=== PATIENT | male | born 1940 | race Caucasian/White ===

== ENCOUNTER 2016-09-18 15:00 | Inpatient (IN) | payer OTHER ==
[~2016-09-18] VITALS: Ht 154.9 cm; Wt 63.9 kg
[~2016-09-18 15:00] MED LIST: ACTIGALL300 MG PO; ADVAIR HFA120 INHALA IH; APIDRA100 UNIT/1 SQ; ASPIRIN325 MG PO; BUTRANS1 EAC1 TP; CHERATUSSIN AC473 ML PO; CHERATUSSIN DA473 ML PO; CLEOCIN300 MG PO; CYCLOBENZAPRINE10 MG PO; DOXEPIN HCL25 MG PO; ENALAPRIL MALEA10 M1 PO; ENALAPRIL MALEA10 MG PO; FLEXERIL10 MG PO; GLUCOPHAGE1000 MG PO; HUMALOG100 UNIT/1 SC; HYDROCODON-ACE1 EAC7 PO; IMODIUM2 MG PO; KEFLEX500 MG PO; LANTUS 10100 UNITS/ SC; LEVAQUIN250 MG PO; LEVAQUIN500 MG PO; LEVAQUIN750 MG PO; LEVEMIR FL100 UNIT/1 SC; LEVEMIR FL100 UNITS/ SC; LEVEMIR100 UNIT/1 SQ; LEVOTHYROXINE50 MCG PO; LIALDA1.2 GM PO; LIDOCAINE700 MG TP; LIDODERM 5% P1 PATCH TD; LIPITOR80 MG PO; LO-DOSE ASPIRIN81 M1 PO; LOPRESSOR25 MG PO; LOSARTAN POTASS50 MG PO; LOVAZA1 GM PO; MEDROL DOSEPAK4 MG PO; METAMUCIL CAPSU1 CAP PO; METAMUCIL0.52 GM PO; NIASPAN1000 MG PO; NORCO 5/3251 TABLET PO; NOVOLOG 10100 UNITS/ SC; NOVOLOG100 UNIT/3 SC; PERCOCET 5/31 TABLET PO; PREDNISONE10 M1 PO; PREDNISONE10 MG PO; PREDNISONE20 MG PO; PRILOSEC OTC20 MG PO; PRILOSEC20 MG PO; ROWASA60 ML PR; SIMVASTATIN80 MG PO; SINEQUAN25 MG PO; SULFADIAZINE500 MG PO; SULFASALAZINE500 MG PO; TAMIFLU30 MG PO; TRAMADOL HCL50 MG PO; URSODIOL300 MG PO; VENTOLIN HFA18 GM IH; VITAMIN B-121000 MCG PO; VITAMIN B-6100 MG PO; VITAMIN D2000 UNIT PO; VITAMIN D31000 UNIT PO; VITAMIN D400 UNI2 PO; ZOCOR80 M1 PO
[2016-09-18 15:45] LABS: HEMATOCRIT 43.1 % (38.0-50.0); MCH 30.9 PG (29.0-34.0); MCHC 33.9 G/DL (30.0-36.0); MCV 91.1 FL (86-99); MEAN PLAT.VOLUME 8.8 uM^3 (9.0-12.4); PLATELET COUNT 132 K/uL (156-360); RBC DIS.WIDTH-CV 14.6 % (11.8-14.6); RBC DIS.WIDTH-SD 48.5 % (39-53); RED BLOOD COUNT 4.73 M/uL (4.00-5.50); WHITE BLOOD COUNT 18.7 K/uL (4.1-10.2)
[2016-09-18 15:56] LABS: CHLORIDE 101 mEq/L (99-109); POTASSIUM 3.9 mEq/L (3.7-5.4); SODIUM 133 mEq/L (136-147)
[2016-09-18 15:57] LABS: GLUCOSE 162 mg/dL (70-99)
[2016-09-18 15:59] LABS: ANION GAP 11 MEQ/L (2-14)
[2016-09-18 16:01] LABS: GFR ESTIMATE (CALCULATED) 29 mL/min/
[2016-09-18 16:02] LABS: UREA NITROGEN (BUN) 25 mg/dL (9-23)
[2016-09-18 16:09] LABS: TROP-I INTERPRETATION NEGATIVE; TROPONIN-I < 0.01 ng/mL (0.0-0.30)
[2016-09-18 20:32] LABS: TROP-I INTERPRETATION NEGATIVE; TROPONIN-I < 0.01 ng/mL (0.0-0.30)
[2016-09-18 22:11] LABS: D-DIMER ELISA 0.53 mg/L FEU (< 0.57)
[2016-09-19] MEDS ORDERED: PROTONIX40 MG PO (00:08)
[2016-09-19] MEDS ORDERED: IRON325 M1 PO (00:09)
[2016-09-19] MEDS ORDERED: GENTEAL TEARS 015 M1 BOTH EYES (00:09)
[2016-09-19 01:08] LABS: CARBON DIOXIDE (BICARBONATE) 25.7 MEQ/L (20-31)
[2016-09-19 01:26] LABS: BASOPHIL COUNT 0.1 K/uL (0-0.1); EOSINOPHIL (%) 1.4 % (0-5); EOSINOPHIL COUNT 0.3 K/uL (0-0.3); IMMATURE GRANULOCYTE (%) 0.5 % (0.0-0.7); IMMATURE GRANULOCYTE COUNT 0.1 K/uL; INSTRUMENT ABS NEUTROPHIL CT 14.4 K/uL; LYMPHOCYTE COUNT 1.6 K/uL (1.0-2.8); MONOCYTE COUNT 1.8 K/uL (0-0.8); NEUTROPHIL (%) 78.8 % (45-76); NEUTROPHIL COUNT 14.4 K/uL (1.8-6.4)
[2016-09-19 03:01] LABS: POINT-OF-CARE METER ID UU13113702
[2016-09-19 03:09] VITALS: BP 114/58
[2016-09-19 06:25] LABS: C DIFF TOXIN POSITIVE (NEGATIVE)
[2016-09-19 06:26] LABS: PROBE CHECK PASS
[2016-09-19 07:50] VITALS: BP 128/80
[2016-09-19 09:28] LABS: POINT-OF-CARE METER ID UU13113781
[2016-09-19 11:23] LABS: POINT-OF-CARE METER ID UU13113781
[2016-09-19 11:24] LABS: BASOPHIL COUNT 0.1 K/uL (0-0.1); EOSINOPHIL (%) 1.2 % (0-5); EOSINOPHIL COUNT 0.2 K/uL (0-0.3); HEMATOCRIT 40.4 % (38.0-50.0); IMMATURE GRANULOCYTE COUNT 0.2 K/uL; INSTRUMENT ABS NEUTROPHIL CT 12.1 K/uL; LYMPHOCYTE COUNT 1.4 K/uL (1.0-2.8); MCH 31.6 PG (29.0-34.0); MCHC 34.2 G/DL (30.0-36.0); MCV 92.4 FL (86-99); MEAN PLAT.VOLUME 9.3 uM^3 (9.0-12.4); MONOCYTE (%) 10.4 % (3-12); MONOCYTE COUNT 1.6 K/uL (0-0.8); NEUTROPHIL COUNT 12.1 K/uL (1.8-6.4); PLATELET COUNT 119 K/uL (156-360); RBC DIS.WIDTH-CV 14.6 % (11.8-14.6); RBC DIS.WIDTH-SD 49.7 % (39-53); RED BLOOD COUNT 4.37 M/uL (4.00-5.50); WHITE BLOOD COUNT 15.5 K/uL (4.1-10.2)
[2016-09-19 11:56] LABS: ANION GAP 13 MEQ/L (2-14); CHLORIDE 100 MEQ/L (99-109); GFR ESTIMATE (CALCULATED) 31 mL/min/; GLUCOSE 148 mg/dL (70-99); POTASSIUM 4.4 MEQ/L (3.7-5.4); SAMPLE HEMOLYSIS CHECK 0; SAMPLE ICTERIC CHECK 0; SAMPLE LIPEMIA CHECK 0; SODIUM 132 MEQ/L (136-147); UREA NITROGEN (BUN) 33 mg/dL (9-23)
[2016-09-19 12:00] VITALS: BP 120/58
[2016-09-19 14:32] LABS: ADD MIUA? YES; BILIRUBIN NEGATIVE; BLOOD MODERATE; COLOR YELLOW ((YELLOW)); GLUCOSE (STRIP) NEGATIVE; KETONES NEGATIVE; LEUKOCYTES NEGATIVE; NITRITE NEGATIVE; PROTEIN (STRIP) 30; SPECIFIC GRAVITY 1.006 (1.000-1.030); UROBILINOGEN 0.2 MG/DL (0.2-1.0)
[2016-09-19 14:37] LABS: BACTERIA RARE /HPF; EPITHELIAL CELLS RARE /HPF; MUCUS TRACE /LPF; RED BLOOD CELLS 0-5 /HPF (0-5); UCUL ADDED? NO; WHITE BLOOD CELLS 0-5 /HPF (0-5)
[2016-09-19 15:54] LABS: POINT-OF-CARE METER ID UU13113781
[2016-09-19 16:00] VITALS: BP 122/60
[2016-09-19 19:27] VITALS: BP 133/61
[2016-09-19 23:03] VITALS: BP 115/72
[2016-09-20 00:13] LABS: POINT-OF-CARE METER ID UU13113781
[2016-09-20 03:34] VITALS: BP 117/57
[2016-09-20 06:18] LABS: ANION GAP 10 MEQ/L (2-14); CHLORIDE 105 MEQ/L (99-109); GFR ESTIMATE (CALCULATED) 31 mL/min/; GLUCOSE 181 mg/dL (70-99); POTASSIUM 3.8 MEQ/L (3.7-5.4); SAMPLE HEMOLYSIS CHECK 0; SAMPLE ICTERIC CHECK 0; SAMPLE LIPEMIA CHECK 0; SODIUM 135 MEQ/L (136-147); UREA NITROGEN (BUN) 35 mg/dL (9-23)
[2016-09-20 07:23] LABS: EOSINOPHIL (%) 4.1 % (0-5); EOSINOPHIL COUNT 0.4 K/uL (0-0.3); IMMATURE GRANULOCYTE (%) 0.5 % (0.0-0.7); IMMATURE GRANULOCYTE COUNT 0.1 K/uL; LYMPHOCYTE COUNT 1.3 K/uL (1.0-2.8); MCH 31.5 PG (29.0-34.0); MCHC 33.9 G/DL (30.0-36.0); MCV 92.7 FL (86-99); MEAN PLAT.VOLUME 9.4 uM^3 (9.0-12.4); MONOCYTE (%) 10.1 % (3-12); NEUTROPHIL (%) 71.8 % (45-76); PLATELET COUNT 118 K/uL (156-360); RBC DIS.WIDTH-CV 14.6 % (11.8-14.6); RBC DIS.WIDTH-SD 49.6 % (39-53); WHITE BLOOD COUNT 9.7 K/uL (4.1-10.2)
[2016-09-20 07:46] LABS: POINT-OF-CARE USER ID NUTSLF44
[2016-09-20 08:45] VITALS: BP 100/56
[2016-09-20 09:05] LABS: MAGNESIUM 1.3 mg/dl (1.3-2.7)
[2016-09-20 12:28] VITALS: BP 102/52
[2016-09-20 13:05] LABS: POINT-OF-CARE METER ID UU13113781; POINT-OF-CARE USER ID NUTSLF44
[2016-09-20 16:35] VITALS: BP 104/52
[2016-09-20 17:09] LABS: POINT-OF-CARE METER ID UU13113698
[2016-09-20 20:40] VITALS: BP 129/62
[2016-09-21] VITALS: BP 118/58
[2016-09-21 04:00] VITALS: BP 150/71
[2016-09-21 07:04] LABS: BASOPHIL COUNT 0.1 K/uL (0-0.1); EOSINOPHIL (%) 7.3 % (0-5); EOSINOPHIL COUNT 0.7 K/uL (0-0.3); HEMATOCRIT 42.9 % (38.0-50.0); IMMATURE GRANULOCYTE (%) 1.1 % (0.0-0.7); IMMATURE GRANULOCYTE COUNT 0.1 K/uL; INSTRUMENT ABS NEUTROPHIL CT 6.3 K/uL; LYMPHOCYTE COUNT 1.3 K/uL (1.0-2.8); MCH 31.5 PG (29.0-34.0); MCHC 33.8 G/DL (30.0-36.0); MCV 93.1 FL (86-99); MEAN PLAT.VOLUME 9.6 uM^3 (9.0-12.4); MONOCYTE (%) 10.6 % (3-12); NEUTROPHIL (%) 66.3 % (45-76); NEUTROPHIL COUNT 6.3 K/uL (1.8-6.4); PLATELET COUNT 140 K/uL (156-360); RBC DIS.WIDTH-CV 14.5 % (11.8-14.6); RBC DIS.WIDTH-SD 49.6 % (39-53); RED BLOOD COUNT 4.61 M/uL (4.00-5.50); WHITE BLOOD COUNT 9.5 K/uL (4.1-10.2)
[2016-09-21 07:32] LABS: ALKALINE PHOSPHATASE 92 IU/L (3-129); ANION GAP 8 MEQ/L (2-14); CHLORIDE 108 MEQ/L (99-109); GFR ESTIMATE (CALCULATED) 33 mL/min/; POTASSIUM 3.9 MEQ/L (3.7-5.4); SAMPLE HEMOLYSIS CHECK 0; SAMPLE ICTERIC CHECK 0; SAMPLE LIPEMIA CHECK 0; SODIUM 138 MEQ/L (136-147); TOTAL BILIRUBIN 0.7 MG/DL (0.0-1.0); UREA NITROGEN (BUN) 30 mg/dL (9-23)
[2016-09-21 07:33] LABS: GLUCOSE 106 mg/dL (70-99)
[2016-09-21 08:33] LABS: POINT-OF-CARE METER ID UU13113698; POINT-OF-CARE USER ID NUTSLF44
[2016-09-21 09:00] VITALS: BP 117/78
[2016-09-21 09:39] LABS: Estimated Average Glucose 166 mg/dL (70-123); HEMOGLOBIN A1c (GLYCOHEMOGLOB) 7.4 % HGB (Below 5.7)
[2016-09-21 11:52] LABS: POINT-OF-CARE METER ID UU13113698; POINT-OF-CARE USER ID NUTSLF44
[2016-09-21 17:22] LABS: POINT-OF-CARE METER ID UU13113781
[2016-09-21 18:05] VITALS: BP 136/66
[2016-09-21 18:12] LABS: POINT-OF-CARE METER ID UU13113781; POINT-OF-CARE USER ID NUTSLF44
[2016-09-21 20:45] LABS: POINT-OF-CARE METER ID UU13113698
[2016-09-21 21:00] VITALS: BP 138/62
[2016-09-22] VITALS: BP 116/80
[2016-09-22 04:00] VITALS: BP 162/88
[2016-09-22 06:24] LABS: BASOPHIL COUNT 0.1 K/uL (0-0.1); EOSINOPHIL (%) 7.2 % (0-5); EOSINOPHIL COUNT 0.7 K/uL (0-0.3); IMMATURE GRANULOCYTE (%) 1.3 % (0.0-0.7); IMMATURE GRANULOCYTE COUNT 0.1 K/uL; INSTRUMENT ABS NEUTROPHIL CT 5.6 K/uL; LYMPHOCYTE COUNT 1.6 K/uL (1.0-2.8); MCH 31.1 PG (29.0-34.0); MCV 91.5 FL (86-99); MEAN PLAT.VOLUME 9.3 uM^3 (9.0-12.4); MONOCYTE (%) 10.7 % (3-12); NEUTROPHIL (%) 62.4 % (45-76); NEUTROPHIL COUNT 5.6 K/uL (1.8-6.4); PLATELET COUNT 147 K/uL (156-360); RBC DIS.WIDTH-CV 14.1 % (11.8-14.6); RBC DIS.WIDTH-SD 47.5 % (39-53); RED BLOOD COUNT 4.37 M/uL (4.00-5.50)
[2016-09-22 06:52] LABS: ALKALINE PHOSPHATASE 110 IU/L (3-129); ANION GAP 10 MEQ/L (2-14); CHLORIDE 108 MEQ/L (99-109); GFR ESTIMATE (CALCULATED) 45 mL/min/; GLUCOSE 95 mg/dL (70-99); POTASSIUM 3.7 MEQ/L (3.7-5.4); SAMPLE HEMOLYSIS CHECK 0; SAMPLE ICTERIC CHECK 0; SAMPLE LIPEMIA CHECK 0; SODIUM 138 MEQ/L (136-147); TOTAL BILIRUBIN 0.6 MG/DL (0.0-1.0); UREA NITROGEN (BUN) 26 mg/dL (9-23)
[2016-09-22 09:00] VITALS: BP 127/61
[2016-09-22] MEDS ORDERED: VANCOCIN HCL125 MG PO (09:34)
[2016-09-22] MEDS ORDERED: AMOX TR-K CLV1 EAC3 PO (09:34)
[2016-09-22 11:41] LABS: POINT-OF-CARE METER ID UU14174216; POINT-OF-CARE USER ID ENVKC36
== END 2016-09-22 13:47 | disposition home health service (06) | DRG 190 ==
LOC: EME 15:00 → EDOF 09-19 00:17 → 4EAST 09-19 00:17
PROVIDERS: Hospitalist; Internal Medicine; Internal Medicine Nephrology; Physician Assistant; Physician Assistant Medical
DX: J44.1 Chronic obstructive pulmonary disease with (acute) exacerbation (principal); J96.21 Acute and chronic respiratory failure with hypoxia; J67.9 Hypersensitivity pneumonitis due to unspecified organic dust; A04.7 Enterocolitis due to Clostridium difficile; N17.9 Acute kidney failure, unspecified; N18.3 Chronic kidney disease, stage 3 (moderate); E86.0 Dehydration; G47.33 Obstructive sleep apnea (adult) (pediatric); I12.9 Hypertensive chronic kidney disease with stage 1 through stage 4 chronic kidney disease, or unspecified chronic kidney disease; E87.1 Hypo-osmolality and hyponatremia; E11.22 Type 2 diabetes mellitus with diabetic chronic kidney disease; I44.0 Atrioventricular block, first degree; E78.5 Hyperlipidemia, unspecified; D69.6 Thrombocytopenia, unspecified; K21.9 Gastro-esophageal reflux disease without esophagitis; Z79.4 Long term (current) use of insulin; Z99.81 Dependence on supplemental oxygen; Z87.891 Personal history of nicotine dependence; Z87.442 Personal history of urinary calculi; Z98.1 Arthrodesis status; Z86.12 Personal history of poliomyelitis; Z82.3 Family history of stroke; Z83.3 Family history of diabetes mellitus
CPT/HCPCS: 71020; 71250; 76770; 80048; 80053; 81003; 82436; 82550; 82575; 82803; 82948; 83036; 83605; 83735; 83880; 83935; 84133; 84300; 84484; 85025; 85027; 85379; 87040; 87070; 87205; 87493; 93005; 93971; 94640; 94640 76; 94760; 94799; 99202; 99281; 99285; J0692; J1644; J1815; J7030; J7050

== ENCOUNTER 2017-03-09 19:25 | Observation (INO) | payer OTHER ==
[~2017-03-09] VITALS: Ht 154.9 cm; Wt 63.0 kg
[~2017-03-09 19:25] MED LIST changes: +AMOX TR-K CLV1 EAC3 PO; +GENTEAL TEARS 015 M1 BOTH EYES; +IRON325 M1 PO; +PROTONIX40 MG PO; +VANCOCIN HCL125 MG PO
[2017-03-09 20:09] LABS: MCV 91.3 FL (86-99); MEAN PLAT.VOLUME 8.8 uM^3 (9.0-12.4); PLATELET COUNT 150 K/uL (156-360); RBC DIS.WIDTH-CV 14.5 % (11.8-14.6); RBC DIS.WIDTH-SD 48.1 % (39-53); RED BLOOD COUNT 5.26 M/uL (4.00-5.50); WHITE BLOOD COUNT 9.3 K/uL (4.1-10.2)
[2017-03-09 20:12] LABS: BASE EXCESS -3.9 mEq/L (-3 to +3); BICARBONATE 20.9 mEq/L (22-26); CARBOXY HGB 2.3 % (0-5); METHEMOGLOBIN 1.2 % (0-1.5); pH 7.36 (7.35-7.45)
[2017-03-09 20:14] LABS: COMMENTS - BLOOD GASES C+; DEVICE NC; O2 FLOW 6 L/MIN; PCO2 37 mm Hg (35-45); PO2 127 mm Hg (80-100); SITE RR; TOTAL RESP RATE 18 resp/min
[2017-03-09 20:18] LABS: CHLORIDE 102 mEq/L (99-109); MAGNESIUM 1.3 mg/dL (1.3-2.7); POTASSIUM 4.1 mEq/L (3.7-5.4); SODIUM 137 mEq/L (136-147)
[2017-03-09 20:20] LABS: GLUCOSE 264 mg/dL (70-99)
[2017-03-09 20:21] LABS: ANION GAP 13 MEQ/L (2-14)
[2017-03-09 20:23] LABS: GFR ESTIMATE (CALCULATED) 31 mL/min/
[2017-03-09 20:24] LABS: UREA NITROGEN (BUN) 21 mg/dL (9-23)
[2017-03-09 20:31] LABS: TROP-I INTERPRETATION NEGATIVE; TROPONIN-I 0.01 ng/mL (0.0-0.30)
[2017-03-09 21:32] LABS: ADD MIUA? YES; BILIRUBIN NEGATIVE; BLOOD MODERATE; COLOR YELLOW ((YELLOW)); GLUCOSE (STRIP) 50; KETONES NEGATIVE; LEUKOCYTES NEGATIVE; NITRITE NEGATIVE; PROTEIN (STRIP) 100; SPECIFIC GRAVITY 1.013 (1.000-1.030); UROBILINOGEN 0.2 MG/DL (0.2-1.0)
[2017-03-09 21:36] LABS: BACTERIA NONE SEEN /HPF; EPITHELIAL CELLS RARE /HPF; GRANULAR CASTS 0-5 /LPF; MUCUS NONE SEEN /LPF; RED BLOOD CELLS 0-5 /HPF (0-5); WHITE BLOOD CELLS 0-5 /HPF (0-5)
[2017-03-09] MEDS ORDERED: MUCINEX600 MG PO (22:05)
[2017-03-09] MEDS ORDERED: ROSUVASTATIN CA40 MG PO (22:06)
[2017-03-09] MEDS ORDERED: REQUIP0.25 MG PO (22:06)
[2017-03-09] MEDS ORDERED: ROBITUSSIN AC,T10 ML PO (22:07)
[2017-03-10 01:15] VITALS: BP 121/66
[2017-03-10 04:02] VITALS: BP 150/70
[2017-03-10 08:57] LABS: POINT-OF-CARE METER ID UU14162513
[2017-03-10 09:46] VITALS: BP 139/68
[2017-03-10 11:30] VITALS: BP 131/66
[2017-03-10 12:38] LABS: POINT-OF-CARE METER ID UU14162513
[2017-03-10 15:36] VITALS: BP 124/77
[2017-03-10] MEDS ORDERED: LOPRESSOR25 MG PO (17:05)
[2017-03-10] MEDS ORDERED: HYDROCODON-ACE1 EAC7 PO (17:06)
[2017-03-10] MEDS ORDERED: PRILOSEC10 MG PO (17:10)
[2017-03-10] MEDS ORDERED: CORICIDIN HBP1 EACH PO (17:11)
[2017-03-10 17:30] LABS: POINT-OF-CARE METER ID UU14162513
[2017-03-10 21:08] LABS: POINT-OF-CARE METER ID UU14162513
[2017-03-10 21:38] VITALS: BP 130/62
[2017-03-11] VITALS (7 sets, daily range): BP systolic 122–141; BP diastolic 60–71
[2017-03-11 06:01] LABS: HEMATOCRIT 48.2 % (38.0-50.0); MCH 30.4 PG (29.0-34.0); MCV 89.4 FL (86-99); MEAN PLAT.VOLUME 9.2 uM^3 (9.0-12.4); PLATELET COUNT 171 K/uL (156-360); RBC DIS.WIDTH-CV 13.6 % (11.8-14.6); RBC DIS.WIDTH-SD 44.5 % (39-53); RED BLOOD COUNT 5.39 M/uL (4.00-5.50); WHITE BLOOD COUNT 11.8 K/uL (4.1-10.2)
[2017-03-11 07:40] LABS: CHLORIDE 99 MEQ/L (99-109); GLUCOSE 234 mg/dL (70-99); POTASSIUM 4.9 MEQ/L (3.7-5.4); SAMPLE HEMOLYSIS CHECK 0; SAMPLE ICTERIC CHECK 0; SAMPLE LIPEMIA CHECK 0; SODIUM 134 MEQ/L (136-147)
[2017-03-11 07:42] LABS: UREA NITROGEN (BUN) 42 mg/dL (9-23)
[2017-03-11 08:20] LABS: GFR ESTIMATE (CALCULATED) 35 mL/min/; MAGNESIUM 1.7 mg/dl (1.3-2.7)
[2017-03-11 08:23] LABS: ANION GAP 11 MEQ/L (2-14)
[2017-03-11 08:35] LABS: POINT-OF-CARE METER ID UU14162513
[2017-03-11 16:42] LABS: POINT-OF-CARE METER ID UU14162513
[2017-03-11 17:14] LABS: POINT-OF-CARE METER ID UU13113700
[2017-03-11 21:09] LABS: TROP-I INTERPRETATION NEGATIVE; TROPONIN-I < 0.01 ng/mL (0.0-0.30)
[2017-03-11 21:46] LABS: POINT-OF-CARE METER ID UU14162513
[2017-03-12 02:37] LABS: TROP-I INTERPRETATION NEGATIVE; TROPONIN-I 0.03 ng/mL (0.0-0.30)
[2017-03-12 03:52] VITALS: BP 162/73
[2017-03-12 07:44] LABS: HEMATOCRIT 49.9 % (38.0-50.0); MCH 30.4 PG (29.0-34.0); MCHC 34.1 G/DL (30.0-36.0); MCV 89.3 FL (86-99); MEAN PLAT.VOLUME 8.8 uM^3 (9.0-12.4); PLATELET COUNT 188 K/uL (156-360); RBC DIS.WIDTH-CV 13.5 % (11.8-14.6); RBC DIS.WIDTH-SD 43.8 % (39-53); RED BLOOD COUNT 5.59 M/uL (4.00-5.50); WHITE BLOOD COUNT 13.9 K/uL (4.1-10.2)
[2017-03-12 08:03] LABS: TROP-I INTERPRETATION NEGATIVE; TROPONIN-I < 0.01 ng/mL (0.0-0.30)
[2017-03-12 08:13] LABS: ANION GAP 8 MEQ/L (2-14); CHLORIDE 98 MEQ/L (99-109); GFR ESTIMATE (CALCULATED) 37 mL/min/; GLUCOSE 235 mg/dL (70-99); POTASSIUM 5.1 MEQ/L (3.7-5.4); SAMPLE HEMOLYSIS CHECK 0; SAMPLE ICTERIC CHECK 0; SAMPLE LIPEMIA CHECK 0; SODIUM 134 MEQ/L (136-147); UREA NITROGEN (BUN) 49 mg/dL (9-23)
[2017-03-12 09:00] VITALS: BP 162/74
[2017-03-12 15:23] LABS: POINT-OF-CARE METER ID UU13113700
[2017-03-12 16:52] VITALS: BP 157/71
[2017-03-12] MEDS ORDERED: CEFDINIR300 MG PO (17:21)
[2017-03-12] MEDS ORDERED: PREDNISONE20 MG PO (17:21)
[2017-03-12] MEDS ORDERED: SPIRIVA RESPIMAT4 GM IH (17:22)
== END 2017-03-12 18:07 | disposition home or self-care (01) ==
LOC: EME 19:25 → 5WEST 23:55 → EDOF 23:55 → ENRESERV 23:56 → 5WEST 03-10 01:05
PROVIDERS: Hospitalist; Internal Medicine; Physician Assistant; Physician Assistant Medical
DX: J84.10 Pulmonary fibrosis, unspecified (principal); J96.21 Acute and chronic respiratory failure with hypoxia; J44.1 Chronic obstructive pulmonary disease with (acute) exacerbation; J67.9 Hypersensitivity pneumonitis due to unspecified organic dust; Z99.81 Dependence on supplemental oxygen; E11.22 Type 2 diabetes mellitus with diabetic chronic kidney disease; I12.9 Hypertensive chronic kidney disease with stage 1 through stage 4 chronic kidney disease, or unspecified chronic kidney disease; N18.3 Chronic kidney disease, stage 3 (moderate); G47.33 Obstructive sleep apnea (adult) (pediatric); K21.9 Gastro-esophageal reflux disease without esophagitis; Z87.891 Personal history of nicotine dependence; D69.6 Thrombocytopenia, unspecified; E66.9 Obesity, unspecified; Z68.26 Body mass index [BMI] 26.0-26.9, adult; E78.5 Hyperlipidemia, unspecified; Z86.12 Personal history of poliomyelitis; M62.562 Muscle wasting and atrophy, not elsewhere classified, left lower leg; Z82.3 Family history of stroke; Z88.6 Allergy status to analgesic agent; Z88.8 Allergy status to other drugs, medicaments and biological substances
CPT/HCPCS: 36600; 71010; 71020; 80048; 81003; 82803; 82948; 83605; 83735; 84484; 85027; 87040; 93005; 94640; 94640 76; 94660; 94760; 94799; 99202; 99281; 99285; G0378; J0456; J0696; J1644; J1815; J2930; J3475

== ENCOUNTER 2017-03-20 16:00 | Inpatient (IN) | payer OTHER ==
[~2017-03-20] VITALS: Ht 154.9 cm; Wt 55.6 kg
[~2017-03-20 16:00] MED LIST changes: +CEFDINIR300 MG PO; +CORICIDIN HBP1 EACH PO; +MUCINEX600 MG PO; +PRILOSEC10 MG PO; +REQUIP0.25 MG PO; +ROBITUSSIN AC,T10 ML PO; +ROSUVASTATIN CA40 MG PO; +SPIRIVA RESPIMAT4 GM IH
[2017-03-20 16:35] LABS: EOSINOPHIL (%) 0 % (0-5); IMMATURE GRANULOCYTE (%) 0.9 % (0.0-0.7); IMMATURE GRANULOCYTE COUNT 0.1 K/uL; INSTRUMENT ABS NEUTROPHIL CT 12.1 K/uL; LYMPHOCYTE COUNT 0.8 K/uL (1.0-2.8); MCH 31.2 PG (29.0-34.0); MCV 89.1 FL (86-99); MEAN PLAT.VOLUME 9.4 uM^3 (9.0-12.4); MONOCYTE (%) 4.7 % (3-12); MONOCYTE COUNT 0.6 K/uL (0-0.8); NEUTROPHIL (%) 88.5 % (45-76); NEUTROPHIL COUNT 12.1 K/uL (1.8-6.4); PLATELET COUNT 147 K/uL (156-360); RBC DIS.WIDTH-CV 13.2 % (11.8-14.6); RBC DIS.WIDTH-SD 43.3 % (39-53); RED BLOOD COUNT 5.39 M/uL (4.00-5.50); WHITE BLOOD COUNT 13.7 K/uL (4.1-10.2)
[2017-03-20 16:36] LABS: CARBON DIOXIDE (BICARBONATE) 25.5 MEQ/L (20-31)
[2017-03-20 16:52] LABS: CHLORIDE 95 mEq/L (99-109); POTASSIUM 5.9 mEq/L (3.7-5.4); SODIUM 125 mEq/L (136-147)
[2017-03-20 16:55] LABS: ANION GAP 9 MEQ/L (2-14)
[2017-03-20 16:58] LABS: GFR ESTIMATE (CALCULATED) 27 mL/min/ (58.99-99999)
[2017-03-20 16:59] LABS: UREA NITROGEN (BUN) 77 mg/dL (9-23)
[2017-03-20 17:03] LABS: GLUCOSE 589 mg/dL (70-99)
[2017-03-20 18:17] LABS: POINT-OF-CARE METER ID UU13113702
[2017-03-20 20:47] LABS: CHLORIDE 103 mEq/L (99-109); POTASSIUM 5.1 mEq/L (3.7-5.4)
[2017-03-20] MEDS ORDERED: PREDNISONE10 MG PO (20:47)
[2017-03-20 20:48] LABS: MAGNESIUM 1.7 mg/dL (1.3-2.7)
[2017-03-20 20:50] LABS: ADD MIUA? YES; BILIRUBIN NEGATIVE; BLOOD MODERATE; COLOR STRAW ((YELLOW)); GLUCOSE (STRIP) >=500; KETONES NEGATIVE; LEUKOCYTES NEGATIVE; NITRITE NEGATIVE; PROTEIN (STRIP) 30; UROBILINOGEN 0.2 MG/DL (0.2-1.0)
[2017-03-20 20:51] LABS: ANION GAP 9 MEQ/L (2-14); TOTAL BILIRUBIN 0.4 mg/dL (0.0-1.0)
[2017-03-20 20:53] LABS: ALKALINE PHOSPHATASE 93 IU/L (3-129)
[2017-03-20 20:54] LABS: UREA NITROGEN (BUN) 65 mg/dL (9-23)
[2017-03-20 20:57] LABS: CARBON DIOXIDE (BICARBONATE) 24.2 MEQ/L (20-31)
[2017-03-20 20:58] LABS: GFR ESTIMATE (CALCULATED) 37 mL/min/ (58.99-99999); GLUCOSE 293 mg/dL (70-99); SODIUM 132 mEq/L (136-147)
[2017-03-20 20:59] LABS: BACTERIA RARE /HPF; EPITHELIAL CELLS NONE SEEN /HPF; HYALINE CASTS 0-5 /LPF; MUCUS TRACE /LPF; RED BLOOD CELLS 0-5 /HPF (0-5); UCUL ADDED? NO; WHITE BLOOD CELLS 0-5 /HPF (0-5)
[2017-03-20 22:24] VITALS: BP 136/71
[2017-03-20 23:58] VITALS: BP 131/66
[2017-03-21 04:45] VITALS: BP 121/65
[2017-03-21 06:33] LABS: POINT-OF-CARE METER ID UU14149397
[2017-03-21 07:39] LABS: HEMATOCRIT 48.5 % (38.0-50.0); MCH 30.3 PG (29.0-34.0); MCV 89.2 FL (86-99); MEAN PLAT.VOLUME 9.3 uM^3 (9.0-12.4); PLATELET COUNT 146 K/uL (156-360); RBC DIS.WIDTH-CV 13.2 % (11.8-14.6); RBC DIS.WIDTH-SD 43.1 % (39-53); RED BLOOD COUNT 5.44 M/uL (4.00-5.50); WHITE BLOOD COUNT 14.3 K/uL (4.1-10.2)
[2017-03-21 07:49] VITALS: BP 121/62
[2017-03-21 08:03] LABS: ALKALINE PHOSPHATASE 75 IU/L (3-129); ANION GAP 5 MEQ/L (2-14); CHLORIDE 103 MEQ/L (99-109); GFR ESTIMATE (CALCULATED) 42 mL/min/ (58.99-99999); GLUCOSE 151 mg/dL (70-99); MAGNESIUM 1.8 mg/dl (1.3-2.7); POTASSIUM 4.6 MEQ/L (3.7-5.4); SAMPLE HEMOLYSIS CHECK 0; SAMPLE ICTERIC CHECK 0; SAMPLE LIPEMIA CHECK 0; SODIUM 134 MEQ/L (136-147); TOTAL BILIRUBIN 0.6 MG/DL (0.0-1.0); UREA NITROGEN (BUN) 58 mg/dL (9-23)
[2017-03-21 09:39] LABS: POINT-OF-CARE METER ID UU13113702
[2017-03-21 11:33] LABS: POINT-OF-CARE METER ID UU14117124
[2017-03-21 11:37] VITALS: BP 111/53
[2017-03-21 15:54] VITALS: BP 141/65
[2017-03-21 16:46] LABS: POINT-OF-CARE METER ID UU14188577
[2017-03-21 19:58] VITALS: BP 115/55
[2017-03-21 22:14] LABS: POINT-OF-CARE METER ID UU14117124
[2017-03-21 23:59] VITALS: BP 122/66
[2017-03-22 03:39] VITALS: BP 124/69
[2017-03-22 06:35] LABS: EOSINOPHIL (%) 2.3 % (0-5); EOSINOPHIL COUNT 0.3 K/uL (0-0.3); HEMATOCRIT 52.4 % (38.0-50.0); IMMATURE GRANULOCYTE (%) 0.8 % (0.0-0.7); IMMATURE GRANULOCYTE COUNT 0.1 K/uL; INSTRUMENT ABS NEUTROPHIL CT 9.4 K/uL; LYMPHOCYTE COUNT 2.1 K/uL (1.0-2.8); MCH 31.1 PG (29.0-34.0); MCHC 34.7 G/DL (30.0-36.0); MCV 89.6 FL (86-99); MEAN PLAT.VOLUME 9.8 uM^3 (9.0-12.4); MONOCYTE (%) 10.2 % (3-12); MONOCYTE COUNT 1.4 K/uL (0-0.8); NEUTROPHIL (%) 71.1 % (45-76); NEUTROPHIL COUNT 9.4 K/uL (1.8-6.4); PLATELET COUNT 146 K/uL (156-360); RBC DIS.WIDTH-CV 13.6 % (11.8-14.6); RED BLOOD COUNT 5.85 M/uL (4.00-5.50); WHITE BLOOD COUNT 13.3 K/uL (4.1-10.2)
[2017-03-22 06:47] LABS: POINT-OF-CARE METER ID UU14149397
[2017-03-22 09:09] VITALS: BP 122/72
[2017-03-22 11:52] LABS: POINT-OF-CARE METER ID UU14149397
[2017-03-22 11:56] VITALS: BP 125/61
[2017-03-22 16:37] VITALS: BP 155/70
[2017-03-22 16:43] LABS: POINT-OF-CARE METER ID UU14149397
[2017-03-22 21:39] LABS: POINT-OF-CARE METER ID UU14208753
[2017-03-22 23:47] VITALS: BP 121/69
[2017-03-23 04:36] VITALS: BP 112/73
[2017-03-23 06:23] LABS: EOSINOPHIL (%) 2.7 % (0-5); EOSINOPHIL COUNT 0.4 K/uL (0-0.3); HEMATOCRIT 50.5 % (38.0-50.0); IMMATURE GRANULOCYTE (%) 0.9 % (0.0-0.7); IMMATURE GRANULOCYTE COUNT 0.1 K/uL; INSTRUMENT ABS NEUTROPHIL CT 10.5 K/uL; LYMPHOCYTE COUNT 2.3 K/uL (1.0-2.8); MCH 30.1 PG (29.0-34.0); MCHC 34.1 G/DL (30.0-36.0); MCV 88.4 FL (86-99); MEAN PLAT.VOLUME 9.6 uM^3 (9.0-12.4); MONOCYTE (%) 9.2 % (3-12); MONOCYTE COUNT 1.4 K/uL (0-0.8); NEUTROPHIL (%) 71.6 % (45-76); NEUTROPHIL COUNT 10.5 K/uL (1.8-6.4); PLATELET COUNT 152 K/uL (156-360); RBC DIS.WIDTH-CV 13.3 % (11.8-14.6); RBC DIS.WIDTH-SD 43.5 % (39-53); RED BLOOD COUNT 5.71 M/uL (4.00-5.50); WHITE BLOOD COUNT 14.7 K/uL (4.1-10.2)
[2017-03-23 06:36] LABS: ANION GAP 8 MEQ/L (2-14); CHLORIDE 104 MEQ/L (99-109); GFR ESTIMATE (CALCULATED) 37 mL/min/ (58.99-99999); GLUCOSE 133 mg/dL (70-99); POTASSIUM 4.2 MEQ/L (3.7-5.4); SAMPLE HEMOLYSIS CHECK 0; SAMPLE ICTERIC CHECK 0; SAMPLE LIPEMIA CHECK 0; SODIUM 135 MEQ/L (136-147); UREA NITROGEN (BUN) 49 mg/dL (9-23)
[2017-03-23 07:31] LABS: POINT-OF-CARE METER ID UU14188577
[2017-03-23 07:41] VITALS: BP 106/65
[2017-03-23 11:40] LABS: POINT-OF-CARE METER ID UU14117124
[2017-03-23 11:46] VITALS: BP 111/60
[2017-03-23 16:21] VITALS: BP 129/67
[2017-03-23 16:40] LABS: POINT-OF-CARE METER ID UU14208753
[2017-03-23 19:43] VITALS: BP 128/60
[2017-03-23 21:52] LABS: POINT-OF-CARE METER ID UU14117124
[2017-03-24 00:14] VITALS: BP 140/60
[2017-03-24 04:12] VITALS: BP 121/62
[2017-03-24 06:28] LABS: POINT-OF-CARE METER ID UU14149397
[2017-03-24 07:18] LABS: ANION GAP 7 MEQ/L (2-14); CHLORIDE 105 MEQ/L (99-109); GFR ESTIMATE (CALCULATED) 35 mL/min/ (58.99-99999); GLUCOSE 127 mg/dL (70-99); POTASSIUM 4.3 MEQ/L (3.7-5.4); SAMPLE HEMOLYSIS CHECK 0; SAMPLE ICTERIC CHECK 0; SAMPLE LIPEMIA CHECK 0; SODIUM 136 MEQ/L (136-147); UREA NITROGEN (BUN) 46 mg/dL (9-23)
[2017-03-24 08:25] VITALS: BP 101/52; BP 125/70
[2017-03-24 12:05] LABS: POINT-OF-CARE METER ID UU14117124
[2017-03-24 12:12] VITALS: BP 123/59
[2017-03-24 15:55] VITALS: BP 110/58
[2017-03-24 17:15] LABS: POINT-OF-CARE METER ID UU14117124
[2017-03-24 20:26] VITALS: BP 149/65
[2017-03-24 22:20] LABS: POINT-OF-CARE METER ID UU14149397
[2017-03-25 00:28] VITALS: BP 123/63
[2017-03-25 03:31] VITALS: BP 132/68
[2017-03-25 06:28] LABS: POINT-OF-CARE METER ID UU14117124
[2017-03-25 07:51] VITALS: BP 89/57
[2017-03-25 08:52] VITALS: BP 100/56
[2017-03-25 08:58] LABS: ANION GAP 9 MEQ/L (2-14); CHLORIDE 102 MEQ/L (99-109); GFR ESTIMATE (CALCULATED) 39 mL/min/ (58.99-99999); GLUCOSE 166 mg/dL (70-99); POTASSIUM 4.4 MEQ/L (3.7-5.4); SAMPLE HEMOLYSIS CHECK 0; SAMPLE ICTERIC CHECK 0; SAMPLE LIPEMIA CHECK 0; SODIUM 134 MEQ/L (136-147); UREA NITROGEN (BUN) 45 mg/dL (9-23)
[2017-03-25 11:14] VITALS: BP 133/65
[2017-03-25] MEDS ORDERED: NOVOLOG PE100 UNITS/ SC (11:28)
[2017-03-25 11:52] LABS: POINT-OF-CARE METER ID UU14117124
[2017-03-25] MEDS ORDERED: HYDROCODON-ACE1 EAC7 PO (14:02)
== END 2017-03-25 14:23 | DRG 637 ==
LOC: EME 16:00 → 3EAST 20:24 → EDOF 20:24 → ENRESERV 20:33 → 3EAST 21:47
PROVIDERS: Emergency Medicine; Hospitalist; Physician Assistant Medical; Student in an Organized Health Care Education/Training Program
DX: E11.65 Type 2 diabetes mellitus with hyperglycemia (principal); J96.21 Acute and chronic respiratory failure with hypoxia; N17.9 Acute kidney failure, unspecified; I12.9 Hypertensive chronic kidney disease with stage 1 through stage 4 chronic kidney disease, or unspecified chronic kidney disease; E87.2 Acidosis; J84.112 Idiopathic pulmonary fibrosis; J44.0 Chronic obstructive pulmonary disease with (acute) lower respiratory infection; J44.1 Chronic obstructive pulmonary disease with (acute) exacerbation; R29.6 Repeated falls; G47.33 Obstructive sleep apnea (adult) (pediatric); G93.40 Encephalopathy, unspecified; N18.3 Chronic kidney disease, stage 3 (moderate); E87.1 Hypo-osmolality and hyponatremia; E11.22 Type 2 diabetes mellitus with diabetic chronic kidney disease; K21.9 Gastro-esophageal reflux disease without esophagitis; S00.81XA Abrasion of other part of head, initial encounter; E78.5 Hyperlipidemia, unspecified; G93.89 Other specified disorders of brain; J98.11 Atelectasis; N40.0 Benign prostatic hyperplasia without lower urinary tract symptoms; E86.0 Dehydration; Z79.4 Long term (current) use of insulin; Z87.891 Personal history of nicotine dependence; Z87.442 Personal history of urinary calculi
CPT/HCPCS: 70450; 71250; 80048; 80053; 81003; 82010; 82803; 82948; 83605; 83735; 85025; 85027; 94640; 94640 76; 94660; 94799; 99281; 99285; J1644; J1815; J7030

== ENCOUNTER 2017-05-31 11:41 | Emergency (ER) | payer OTHER ==
[~2017-05-31] VITALS: Ht 154.9 cm; Wt 76.1 kg
[~2017-05-31 11:41] MED LIST changes: +NOVOLOG PE100 UNITS/ SC
[2017-05-31 12:59] LABS: BASOPHIL (%) 0.3 % (0-1); EOSINOPHIL (%) 1.1 % (0-5); EOSINOPHIL COUNT 0.1 K/uL (0-0.3); HEMATOCRIT 42.6 % (38.0-50.0); HEMOGLOBIN 14.9 G/DL (12.5-16.6); IMMATURE GRANULOCYTE (%) 0.6 % (0.0-0.7); LYMPHOCYTE (%) 9.4 % (15-42); LYMPHOCYTE COUNT 0.9 K/uL (1.0-2.8); MCV 88.6 FL (86-99); MONOCYTE (%) 8.5 % (3-12); MONOCYTE COUNT 0.8 K/uL (0-0.8); NEUTROPHIL (%) 80.1 % (45-76); NEUTROPHIL COUNT 7.8 K/uL (1.8-6.4); PLATELET COUNT 107 K/uL (156-360); RBC DIS.WIDTH-CV 13.8 % (11.8-14.6); RED BLOOD COUNT 4.81 M/uL (4.00-5.50); WHITE BLOOD COUNT 9.7 K/uL (4.1-10.2)
[2017-05-31 13:15] LABS: ALBUMIN 3.5 g/dL (3.2-4.8); CHLORIDE 101 mEq/L (99-109); POTASSIUM 3.8 mEq/L (3.7-5.4); SODIUM 132 mEq/L (136-147)
[2017-05-31 13:17] LABS: GLUCOSE 121 mg/dL (70-99); TOTAL PROTEIN 5.8 g/dL (6.4-8.3)
[2017-05-31 13:19] LABS: TOTAL BILIRUBIN 1.5 mg/dL (0.0-1.0)
[2017-05-31 13:21] LABS: ALKALINE PHOSPHATASE 61 IU/L (3-129); CREATININE 1.8 mg/dL (0.6-1.3); GFR ESTIMATE (CALCULATED) 39 mL/min/ (58.99-99999)
[2017-05-31 13:22] LABS: UREA NITROGEN (BUN) 26 mg/dL (9-23)
[2017-05-31 13:23] LABS: AST (GOT) 39 IU/L (2-34)
[2017-05-31 13:24] LABS: ALT (GPT) 38 IU/L (3-49)
[2017-05-31 13:26] LABS: LIPASE < 3.1 U/L (1.0-51.0)
[2017-05-31 15:20] LABS: APPEARANCE CLEAR ((CLEAR)); BILIRUBIN NEGATIVE; BLOOD SMALL; COLOR YELLOW ((YELLOW)); GLUCOSE (STRIP) NEGATIVE; KETONES NEGATIVE; LEUKOCYTES NEGATIVE; NITRITE NEGATIVE; PROTEIN (STRIP) 30; SPECIFIC GRAVITY 1.009 (1.000-1.030); UROBILINOGEN 0.2 MG/DL (0.2-1.0)
[2017-05-31 15:33] LABS: BACTERIA RARE /HPF; CALCIUM OXALATE CRYSTALS 1+ /HPF; EPITHELIAL CELLS NONE SEEN /HPF; MUCUS TRACE /LPF; RED BLOOD CELLS 0-5 /HPF (0-5); UCUL ADDED? NO; WHITE BLOOD CELLS 0-5 /HPF (0-5)
[2017-05-31] MEDS ORDERED: ZOFRAN4 MG PO (15:54)
[2017-05-31 16:17] VITALS: BP 108/64
== END 2017-05-31 16:19 | disposition home or self-care (01) ==
LOC: EME 11:41
PROVIDERS: Emergency Medicine
DX: K52.9 Noninfective gastroenteritis and colitis, unspecified (principal); J44.9 Chronic obstructive pulmonary disease, unspecified; E11.9 Type 2 diabetes mellitus without complications; K21.9 Gastro-esophageal reflux disease without esophagitis; E78.5 Hyperlipidemia, unspecified; I12.9 Hypertensive chronic kidney disease with stage 1 through stage 4 chronic kidney disease, or unspecified chronic kidney disease; N18.9 Chronic kidney disease, unspecified; Z87.891 Personal history of nicotine dependence; Z87.442 Personal history of urinary calculi; Z79.4 Long term (current) use of insulin; Z79.82 Long term (current) use of aspirin; Z88.6 Allergy status to analgesic agent; Z88.8 Allergy status to other drugs, medicaments and biological substances
CPT/HCPCS: 80053; 81003; 83690; 85025; 99281; 99285

== ENCOUNTER 2017-07-19 21:31 | Emergency (ER) | payer OTHER ==
[~2017-07-19] VITALS: Ht 154.9 cm; Wt 59.0 kg
[~2017-07-19 21:31] MED LIST changes: +ZOFRAN4 MG PO
[2017-07-19 22:24] LABS: HEMATOCRIT 43.2 % (38.0-50.0); HEMOGLOBIN 15.5 G/DL (12.5-16.6); MCH 30.7 PG (29.0-34.0); MCHC 35.9 G/DL (30.0-36.0); MCV 85.5 FL (86-99); PLATELET COUNT 145 K/uL (156-360); RED BLOOD COUNT 5.05 M/uL (4.00-5.50); WHITE BLOOD COUNT 12.4 K/uL (4.1-10.2)
[2017-07-19 22:33] LABS: CHLORIDE 101 mEq/L (99-109); POTASSIUM 4.2 mEq/L (3.7-5.4); SODIUM 135 mEq/L (136-147)
[2017-07-19 22:35] LABS: GLUCOSE 155 mg/dL (70-99)
[2017-07-19 22:39] LABS: CREATININE 2.3 mg/dL (0.6-1.3); GFR ESTIMATE (CALCULATED) 29 mL/min/ (58.99-99999); UREA NITROGEN (BUN) 22 mg/dL (9-23)
[2017-07-19 22:46] LABS: TROP-I INTERPRETATION NEGATIVE; TROPONIN-I 0.02 ng/mL (0.0-0.30)
[2017-07-19 23:04] LABS: D-DIMER ELISA < 150.00 ng/mLDDU (<230)
[2017-07-19 23:05] LABS: APPEARANCE CLEAR ((CLEAR)); BILIRUBIN NEGATIVE; BLOOD MODERATE; COLOR STRAW ((YELLOW)); GLUCOSE (STRIP) NEGATIVE; KETONES NEGATIVE; LEUKOCYTES NEGATIVE; NITRITE NEGATIVE; PROTEIN (STRIP) 30; SPECIFIC GRAVITY 1.005 (1.000-1.030); UROBILINOGEN 0.2 MG/DL (0.2-1.0)
[2017-07-19 23:32] LABS: BACTERIA NONE SEEN /HPF; EPITHELIAL CELLS RARE /HPF; MUCUS NONE SEEN /LPF; RED BLOOD CELLS 0-5 /HPF (0-5); UCUL ADDED? NO; WHITE BLOOD CELLS 0-5 /HPF (0-5)
[2017-07-20] MEDS ORDERED: PREDNISONE20 MG PO (00:22)
[2017-07-20 01:06] VITALS: BP 115/69
== END 2017-07-20 01:07 | disposition home or self-care (01) ==
LOC: EME 21:31
PROVIDERS: Emergency Medicine
DX: J44.1 Chronic obstructive pulmonary disease with (acute) exacerbation (principal); J84.10 Pulmonary fibrosis, unspecified; Z99.81 Dependence on supplemental oxygen; I12.9 Hypertensive chronic kidney disease with stage 1 through stage 4 chronic kidney disease, or unspecified chronic kidney disease; N18.9 Chronic kidney disease, unspecified; E11.9 Type 2 diabetes mellitus without complications; K21.9 Gastro-esophageal reflux disease without esophagitis; E78.5 Hyperlipidemia, unspecified; Z87.442 Personal history of urinary calculi; Z87.891 Personal history of nicotine dependence; Z98.1 Arthrodesis status; Z79.4 Long term (current) use of insulin; Z79.82 Long term (current) use of aspirin; Z88.6 Allergy status to analgesic agent; Z88.8 Allergy status to other drugs, medicaments and biological substances
CPT/HCPCS: 71045; 80048; 81003; 84484; 85027; 85379; 93005; J7512

== ENCOUNTER 2017-08-04 00:09 | Inpatient (IN) | payer OTHER ==
[~2017-08-04] VITALS: Ht 154.9 cm; Wt 60.8 kg
[~2017-08-04 00:09] MED LIST changes: -VITAMIN D2000 UNIT PO; +VITAMIN D31000 UNI2 PO
[2017-08-04 01:33] LABS: HEMATOCRIT 42.6 % (38.0-50.0); HEMOGLOBIN 15.4 G/DL (12.5-16.6); MCH 30.2 PG (29.0-34.0); MCHC 36.2 G/DL (30.0-36.0); MCV 83.5 FL (86-99); PLATELET COUNT 146 K/uL (156-360); RBC DIS.WIDTH-CV 13.7 % (11.8-14.6); RBC DIS.WIDTH-SD 41.7 % (39-53); WHITE BLOOD COUNT 19.7 K/uL (4.1-10.2)
[2017-08-04 01:45] LABS: ALBUMIN 3.9 g/dL (3.2-4.8)
[2017-08-04 01:46] LABS: CHLORIDE 101 mEq/L (99-109); POTASSIUM 3.9 mEq/L (3.7-5.4); SODIUM 136 mEq/L (136-147)
[2017-08-04 01:48] LABS: GLUCOSE 126 mg/dL (70-99); TOTAL PROTEIN 6.5 g/dL (6.4-8.3)
[2017-08-04 01:50] LABS: TOTAL BILIRUBIN 1.4 mg/dL (0.0-1.0)
[2017-08-04 01:51] LABS: ALKALINE PHOSPHATASE 111 IU/L (3-129)
[2017-08-04 01:52] LABS: CREATININE 1.9 mg/dL (0.6-1.3); GFR ESTIMATE (CALCULATED) 37 mL/min/ (58.99-99999)
[2017-08-04 01:53] LABS: AST (GOT) 41 IU/L (2-34); UREA NITROGEN (BUN) 20 mg/dL (9-23)
[2017-08-04 01:55] LABS: ALT (GPT) 61 IU/L (3-49); LIPASE 10 U/L (1.0-51.0)
[2017-08-04 02:01] LABS: CARBON DIOXIDE (BICARBONATE) 27.4 MEQ/L (20-31); TROP-I INTERPRETATION NEGATIVE; TROPONIN-I 0.02 ng/mL (0.0-0.30)
[2017-08-04 06:30] VITALS: BP 132/61
[2017-08-04 08:58] VITALS: BP 118/59
[2017-08-04 09:46] LABS: PHOSPHORUS 2.5 mg/dL (2.5-4.9)
[2017-08-04 12:35] VITALS: BP 107/67
[2017-08-04] MEDS ORDERED: FLONASE16 G1 BOTH NARES (16:20)
[2017-08-04] MEDS ORDERED: VITAMIN B-121000 MC3 PO (16:22)
[2017-08-04] MEDS ORDERED: NORVASC5 MG PO (16:23)
[2017-08-04] MEDS ORDERED: SALONPAS PATCH1 EAC1 TD (16:24)
[2017-08-04] MEDS ORDERED: ARTIFICIALS TEA30 ML BOTH EYES (16:24)
[2017-08-04] MEDS ORDERED: DIPROSONE 0.05%15 GM TP (16:32)
[2017-08-04 16:52] VITALS: BP 149/69
[2017-08-04 19:34] VITALS: BP 114/63
[2017-08-05 00:01] VITALS: BP 117/67
[2017-08-05 04:00] VITALS: BP 103/64
[2017-08-05 06:12] LABS: BASOPHIL (%) 0.2 % (0-1); EOSINOPHIL (%) 0 % (0-5); HEMATOCRIT 41.6 % (38.0-50.0); HEMOGLOBIN 14.5 G/DL (12.5-16.6); IMMATURE GRANULOCYTE (%) 0.9 % (0.0-0.7); LYMPHOCYTE (%) 8.8 % (15-42); LYMPHOCYTE COUNT 1.1 K/uL (1.0-2.8); MCH 29.2 PG (29.0-34.0); MCHC 34.9 G/DL (30.0-36.0); MCV 83.9 FL (86-99); MONOCYTE (%) 3.8 % (3-12); MONOCYTE COUNT 0.5 K/uL (0-0.8); NEUTROPHIL (%) 86.3 % (45-76); NEUTROPHIL COUNT 10.8 K/uL (1.8-6.4); PLATELET COUNT 165 K/uL (156-360); RBC DIS.WIDTH-CV 13.6 % (11.8-14.6); RBC DIS.WIDTH-SD 41.9 % (39-53); RED BLOOD COUNT 4.96 M/uL (4.00-5.50); WHITE BLOOD COUNT 12.6 K/uL (4.1-10.2)
[2017-08-05 06:34] LABS: ALBUMIN 3.3 G/DL (3.2-4.8); ALKALINE PHOSPHATASE 79 IU/L (3-129); ALT (GPT) 38 IU/L (3-49); AST (GOT) 23 IU/L (2-34); CHLORIDE 101 MEQ/L (99-109); CREATININE 1.8 MG/DL (0.6-1.3); DIRECT BILIRUBIN 0.2 mg/dL (0.0-0.3); GFR ESTIMATE (CALCULATED) 39 mL/min/ (58.99-99999); POTASSIUM 4.3 MEQ/L (3.7-5.4); SODIUM 134 MEQ/L (136-147); TOTAL BILIRUBIN 0.9 MG/DL (0.0-1.0); TOTAL PROTEIN 5.2 G/DL (6.4-8.3)
[2017-08-05 06:37] LABS: GLUCOSE 282 mg/dL (70-99); UREA NITROGEN (BUN) 32 mg/dL (9-23)
[2017-08-05 08:04] VITALS: BP 116/59
[2017-08-05 12:04] VITALS: BP 91/55
[2017-08-05 16:27] VITALS: BP 102/54
[2017-08-05 19:53] VITALS: BP 98/55
[2017-08-06 00:31] VITALS: BP 129/59
[2017-08-06 04:03] VITALS: BP 103/61
[2017-08-06 06:12] LABS: HEMATOCRIT 40.1 % (38.0-50.0); HEMOGLOBIN 14.1 G/DL (12.5-16.6); MCH 29.6 PG (29.0-34.0); MCHC 35.2 G/DL (30.0-36.0); MCV 84.2 FL (86-99); PLATELET COUNT 160 K/uL (156-360); RBC DIS.WIDTH-CV 13.6 % (11.8-14.6); RED BLOOD COUNT 4.76 M/uL (4.00-5.50); WHITE BLOOD COUNT 16.9 K/uL (4.1-10.2)
[2017-08-06 06:34] LABS: CHLORIDE 102 MEQ/L (99-109); CREATININE 1.6 MG/DL (0.6-1.3); GFR ESTIMATE (CALCULATED) 45 mL/min/ (58.99-99999); GLUCOSE 261 mg/dL (70-99); MAGNESIUM 1.5 mg/dl (1.3-2.7); POTASSIUM 3.7 MEQ/L (3.7-5.4); SODIUM 135 MEQ/L (136-147); UREA NITROGEN (BUN) 41 mg/dL (9-23)
[2017-08-06 07:54] VITALS: BP 125/60
[2017-08-06 12:11] VITALS: BP 112/63
[2017-08-06] MEDS ORDERED: LEVAQUIN500 MG PO (13:41)
[2017-08-06] MEDS ORDERED: PREDNISONE5 MG PO (13:41)
== END 2017-08-06 15:54 | disposition home health service (06) | DRG 193 ==
LOC: EME 00:09 → EDOF 03:46 → 5SOUTH 03:46 → ENRESERV 03:47 → 5SOUTH 05:36
PROVIDERS: Emergency Medicine; Hospitalist; Internal Medicine; Physician Assistant Medical
DX: J18.9 Pneumonia, unspecified organism (principal); J84.10 Pulmonary fibrosis, unspecified; J96.21 Acute and chronic respiratory failure with hypoxia; G47.33 Obstructive sleep apnea (adult) (pediatric); E11.65 Type 2 diabetes mellitus with hyperglycemia; J44.1 Chronic obstructive pulmonary disease with (acute) exacerbation; E11.22 Type 2 diabetes mellitus with diabetic chronic kidney disease; I12.9 Hypertensive chronic kidney disease with stage 1 through stage 4 chronic kidney disease, or unspecified chronic kidney disease; N18.3 Chronic kidney disease, stage 3 (moderate); K21.9 Gastro-esophageal reflux disease without esophagitis; E78.5 Hyperlipidemia, unspecified; Z87.891 Personal history of nicotine dependence; Z79.4 Long term (current) use of insulin; Z99.81 Dependence on supplemental oxygen; Z86.12 Personal history of poliomyelitis
CPT/HCPCS: 71045; 71046; 80048; 80053; 80076; 82803; 82948; 83605; 83690; 83735; 83880; 84100; 84484; 85025; 85027; 87040; 87070; 87205; 87449; 93005; 94640; 94640 76; 94660; 94799; 99202; 99281; 99285; J0692; J1644; J1815; J1956; J2930; J7030; J7512

== ENCOUNTER 2017-08-11 00:40 | Emergency (ER) | payer OTHER ==
[~2017-08-11] VITALS: Ht 154.9 cm; Wt 57.7 kg
[~2017-08-11 00:40] MED LIST changes: +ARTIFICIALS TEA30 ML BOTH EYES; +DIPROSONE 0.05%15 GM TP; +FLONASE16 G1 BOTH NARES; +NORVASC5 MG PO; +PREDNISONE5 MG PO; +SALONPAS PATCH1 EAC1 TD; +VITAMIN B-121000 MC3 PO
[2017-08-11 01:16] LABS: HEMOGLOBIN 14.6 G/DL (12.5-16.6); MCH 29.9 PG (29.0-34.0); MCHC 35.6 G/DL (30.0-36.0); MCV 83.8 FL (86-99); PLATELET COUNT 133 K/uL (156-360); RBC DIS.WIDTH-CV 13.6 % (11.8-14.6); RBC DIS.WIDTH-SD 41.6 % (39-53); RED BLOOD COUNT 4.89 M/uL (4.00-5.50); WHITE BLOOD COUNT 11.5 K/uL (4.1-10.2)
[2017-08-11 01:17] LABS: CARBON DIOXIDE (BICARBONATE) 24.5 MEQ/L (20-31)
[2017-08-11 01:27] LABS: ALBUMIN 3.5 g/dL (3.2-4.8); CHLORIDE 99 mEq/L (99-109); POTASSIUM 4.1 mEq/L (3.7-5.4)
[2017-08-11 01:28] LABS: MAGNESIUM 1.4 mg/dL (1.3-2.7); SODIUM 128 mEq/L (136-147)
[2017-08-11 01:32] LABS: TOTAL BILIRUBIN 0.7 mg/dL (0.0-1.0)
[2017-08-11 01:33] LABS: CREATININE 1.9 mg/dL (0.6-1.3); GFR ESTIMATE (CALCULATED) 37 mL/min/ (58.99-99999); PHOSPHORUS 2.6 mg/dL (2.5-4.9)
[2017-08-11 01:34] LABS: UREA NITROGEN (BUN) 25 mg/dL (9-23)
[2017-08-11 01:35] LABS: ALKALINE PHOSPHATASE 151 IU/L (3-129); AST (GOT) 45 IU/L (2-34)
[2017-08-11 01:36] LABS: ALT (GPT) 109 IU/L (3-49); LIPASE 40 U/L (1.0-51.0)
[2017-08-11 01:37] LABS: TROP-I INTERPRETATION NEGATIVE; TROPONIN-I < 0.01 ng/mL (0.0-0.30)
[2017-08-11 01:40] LABS: GLUCOSE 556 mg/dL (70-99)
[2017-08-11 01:43] LABS: APPEARANCE CLEAR ((CLEAR)); BILIRUBIN NEGATIVE; BLOOD SMALL; COLOR STRAW ((YELLOW)); GLUCOSE (STRIP) >=500; KETONES NEGATIVE; LEUKOCYTES NEGATIVE; NITRITE NEGATIVE; PROTEIN (STRIP) 30; UROBILINOGEN 0.2 MG/DL (0.2-1.0)
[2017-08-11 01:43] LABS: TOTAL PROTEIN 5.8 g/dL (6.4-8.3)
[2017-08-11 01:52] LABS: BACTERIA NONE SEEN /HPF; EPITHELIAL CELLS NONE SEEN /HPF; MUCUS TRACE /LPF; RED BLOOD CELLS 0-5 /HPF (0-5); UCUL ADDED? NO; WHITE BLOOD CELLS 0-5 /HPF (0-5)
[2017-08-11 04:21] VITALS: BP 140/76
== END 2017-08-11 04:22 | disposition home or self-care (01) ==
LOC: EME → EDBD 00:40 → EME 00:40
PROVIDERS: Emergency Medicine
DX: E11.65 Type 2 diabetes mellitus with hyperglycemia (principal); R74.0 Nonspecific elevation of levels of transaminase and lactic acid dehydrogenase [LDH]; E11.22 Type 2 diabetes mellitus with diabetic chronic kidney disease; N18.9 Chronic kidney disease, unspecified; I12.9 Hypertensive chronic kidney disease with stage 1 through stage 4 chronic kidney disease, or unspecified chronic kidney disease; K21.9 Gastro-esophageal reflux disease without esophagitis; J44.9 Chronic obstructive pulmonary disease, unspecified; E78.5 Hyperlipidemia, unspecified; Z87.891 Personal history of nicotine dependence; Z87.442 Personal history of urinary calculi; Z79.4 Long term (current) use of insulin; Z79.82 Long term (current) use of aspirin; Z88.6 Allergy status to analgesic agent; Z88.8 Allergy status to other drugs, medicaments and biological substances
CPT/HCPCS: 80053; 81003; 82010; 82803; 82948; 83690; 83735; 84100; 84484; 85027; 93005; 99281; 99284; J7030

== ENCOUNTER 2017-08-12 00:32 | Inpatient (IN) | payer OTHER ==
[~2017-08-12] VITALS: Ht 154.9 cm; Wt 60.9 kg
[2017-08-12 01:06] LABS: HEMATOCRIT 41.4 % (38.0-50.0); HEMOGLOBIN 14.7 G/DL (12.5-16.6); MCH 30.2 PG (29.0-34.0); MCHC 35.5 G/DL (30.0-36.0); PLATELET COUNT 120 K/uL (156-360); RBC DIS.WIDTH-CV 13.9 % (11.8-14.6); RBC DIS.WIDTH-SD 42.7 % (39-53); RED BLOOD COUNT 4.87 M/uL (4.00-5.50); WHITE BLOOD COUNT 13.9 K/uL (4.1-10.2)
[2017-08-12 01:15] LABS: ALBUMIN 3.6 g/dL (3.2-4.8); CHLORIDE 101 mEq/L (99-109); POTASSIUM 3.7 mEq/L (3.7-5.4)
[2017-08-12 01:18] LABS: TOTAL PROTEIN 5.9 g/dL (6.4-8.3)
[2017-08-12 01:21] LABS: ALKALINE PHOSPHATASE 116 IU/L (3-129); CREATININE 1.5 mg/dL (0.6-1.3); GFR ESTIMATE (CALCULATED) 48 mL/min/ (58.99-99999)
[2017-08-12 01:22] LABS: UREA NITROGEN (BUN) 16 mg/dL (9-23)
[2017-08-12 01:23] LABS: AST (GOT) 62 IU/L (2-34)
[2017-08-12 01:24] LABS: ALT (GPT) 129 IU/L (3-49); LIPASE 27 U/L (1.0-51.0)
[2017-08-12 01:27] LABS: CARBON DIOXIDE (BICARBONATE) 30.6 MEQ/L (20-31); TROP-I INTERPRETATION NEGATIVE; TROPONIN-I 0.02 ng/mL (0.0-0.30)
[2017-08-12 01:30] LABS: GLUCOSE 150 mg/dL (70-99); SODIUM 136 mEq/L (136-147); TOTAL BILIRUBIN 1.1 mg/dL (0.0-1.0)
[2017-08-12 02:44] LABS: BASE EXCESS 0.9 mEq/L (-3 to +3); CARBOXY HGB 2.8 % (0-5); METHEMOGLOBIN 1.1 % (0-1.5); PCO2 33 mm Hg (35-45)
[2017-08-12 02:45] LABS: COMMENTS - BLOOD GASES A+C+; DEVICE NC; O2 FLOW 4 L/MIN; PO2 55 mm Hg (80-100); SITE RR; TOTAL RESP RATE 22 resp/min; pH 7.47 (7.35-7.45)
[2017-08-12 02:59] VITALS: BP 109/58
[2017-08-12 05:50] VITALS: BP 122/60
[2017-08-12 05:54] LABS: BASOPHIL (%) 0.2 % (0-1); EOSINOPHIL (%) 3.5 % (0-5); EOSINOPHIL COUNT 0.4 K/uL (0-0.3); HEMATOCRIT 38.5 % (38.0-50.0); HEMOGLOBIN 13.4 G/DL (12.5-16.6); LYMPHOCYTE (%) 7.1 % (15-42); LYMPHOCYTE COUNT 0.8 K/uL (1.0-2.8); MCH 29.7 PG (29.0-34.0); MCHC 34.8 G/DL (30.0-36.0); MCV 85.4 FL (86-99); MONOCYTE (%) 4.8 % (3-12); MONOCYTE COUNT 0.6 K/uL (0-0.8); NEUTROPHIL (%) 83.4 % (45-76); NEUTROPHIL COUNT 9.6 K/uL (1.8-6.4); PLATELET COUNT 114 K/uL (156-360); RBC DIS.WIDTH-CV 13.9 % (11.8-14.6); RBC DIS.WIDTH-SD 42.9 % (39-53); RED BLOOD COUNT 4.51 M/uL (4.00-5.50); WHITE BLOOD COUNT 11.5 K/uL (4.1-10.2)
[2017-08-12 06:24] LABS: CHLORIDE 103 MEQ/L (99-109); CREATININE 1.4 MG/DL (0.6-1.3); GFR ESTIMATE (CALCULATED) 52 mL/min/ (58.99-99999); GLUCOSE 163 mg/dL (70-99); POTASSIUM 3.5 MEQ/L (3.7-5.4); SODIUM 134 MEQ/L (136-147); UREA NITROGEN (BUN) 15 mg/dL (9-23)
[2017-08-12 06:55] VITALS: BP 114/57
[2017-08-12 11:45] VITALS: BP 137/68
[2017-08-12 15:45] VITALS: BP 114/55
[2017-08-12 20:06] VITALS: BP 110/56
[2017-08-13 01:21] VITALS: BP 119/55
[2017-08-13] MEDS ORDERED: CORICIDIN HBP1 EACH PO (01:58)
[2017-08-13] MEDS ORDERED: AMLODIPINE BESYL5 MG PO (02:03)
[2017-08-13] MEDS ORDERED: ROPINIROLE HCL0.5 MG PO (02:04)
[2017-08-13 06:55] VITALS: BP 126/60
[2017-08-13 10:50] VITALS: BP 106/67
[2017-08-13 16:00] VITALS: BP 108/57
[2017-08-13 20:01] VITALS: BP 122/76
[2017-08-14 00:10] VITALS: BP 98/56
[2017-08-14 07:57] VITALS: BP 141/63
[2017-08-14 08:31] LABS: HEMATOCRIT 39.1 % (38.0-50.0); HEMOGLOBIN 13.4 G/DL (12.5-16.6); MCH 29.7 PG (29.0-34.0); MCHC 34.3 G/DL (30.0-36.0); MCV 86.7 FL (86-99); PLATELET COUNT 128 K/uL (156-360); RBC DIS.WIDTH-CV 14.1 % (11.8-14.6); RBC DIS.WIDTH-SD 44.6 % (39-53); RED BLOOD COUNT 4.51 M/uL (4.00-5.50); WHITE BLOOD COUNT 11.9 K/uL (4.1-10.2)
[2017-08-14 09:05] LABS: CHLORIDE 103 MEQ/L (99-109); GFR ESTIMATE (CALCULATED) > 59 mL/min/ (58.99-99999); GLUCOSE 224 mg/dL (70-99); SODIUM 138 MEQ/L (136-147); UREA NITROGEN (BUN) 21 mg/dL (9-23)
[2017-08-14 09:17] LABS: POTASSIUM 4.4 MEQ/L (3.7-5.4)
[2017-08-14 12:11] VITALS: BP 127/61
[2017-08-14 16:36] VITALS: BP 127/58
[2017-08-14 19:40] VITALS: BP 126/59
[2017-08-14 23:47] VITALS: BP 136/73
[2017-08-15 03:13] VITALS: BP 156/69
[2017-08-15 06:18] LABS: TROP-I INTERPRETATION NEGATIVE; TROPONIN-I 0.02 ng/mL (0.0-0.30)
[2017-08-15 06:55] VITALS: BP 122/86
[2017-08-15] MEDS ORDERED: LOPRESSOR25 MG PO (09:55)
[2017-08-15] MEDS ORDERED: AMOX TR-K CLV1 EAC4 PO (09:55)
[2017-08-15] MEDS ORDERED: PREDNISONE10 MG PO (10:00)
== END 2017-08-15 15:57 | disposition home health service (06) | DRG 193 ==
LOC: EME → EDBD 00:32 → EDOF 01:53 → 5EAST 01:53 → ENRESERV 01:54 → 5EAST 02:53 → ENPENDDIS 08-15 → 5EAST 08-15 15:57
PROVIDERS: Emergency Medicine; Hospitalist; Internal Medicine; Internal Medicine Cardiovascular Disease; Nurse Practitioner Adult Health; Student in an Organized Health Care Education/Training Program
DX: J18.9 Pneumonia, unspecified organism (principal); J96.21 Acute and chronic respiratory failure with hypoxia; I47.2 Ventricular tachycardia; J44.9 Chronic obstructive pulmonary disease, unspecified; J84.112 Idiopathic pulmonary fibrosis; G47.33 Obstructive sleep apnea (adult) (pediatric); Z99.81 Dependence on supplemental oxygen; I12.9 Hypertensive chronic kidney disease with stage 1 through stage 4 chronic kidney disease, or unspecified chronic kidney disease; E11.22 Type 2 diabetes mellitus with diabetic chronic kidney disease; N18.3 Chronic kidney disease, stage 3 (moderate); E78.5 Hyperlipidemia, unspecified; K21.9 Gastro-esophageal reflux disease without esophagitis; J98.4 Other disorders of lung; R74.0 Nonspecific elevation of levels of transaminase and lactic acid dehydrogenase [LDH]; Y95 Nosocomial condition; Z79.4 Long term (current) use of insulin; Z79.82 Long term (current) use of aspirin; Z87.01 Personal history of pneumonia (recurrent); Z87.442 Personal history of urinary calculi; Z98.1 Arthrodesis status; Z87.891 Personal history of nicotine dependence
CPT/HCPCS: 36600; 71045; 71250; 80048; 80048 91; 80053; 82803; 82948; 83605; 83690; 83735; 83880; 84145 90; 84484; 85025; 85027; 87040; 87070; 87205; 87449; 87502; 87631; 87641; 93005; 93306; 94640; 94640 76; 94799; 99202; 99281; 99285; J0295; J0456; J0692; J0696; J1644; J1815; J2920; J3475; J7030; J7050; J7512; J7644

== ENCOUNTER 2017-08-17 13:43 | Emergency (ER) | payer OTHER ==
[~2017-08-17] VITALS: Ht 154.9 cm; Wt 59.9 kg
[~2017-08-17 13:43] MED LIST changes: +AMLODIPINE BESYL5 MG PO; +AMOX TR-K CLV1 EAC4 PO; +ROPINIROLE HCL0.5 MG PO
[2017-08-17 14:26] LABS: BASOPHIL (%) 0.3 % (0-1); EOSINOPHIL (%) 3.6 % (0-5); EOSINOPHIL COUNT 0.5 K/uL (0-0.3); HEMATOCRIT 40.9 % (38.0-50.0); HEMOGLOBIN 14.6 G/DL (12.5-16.6); IMMATURE GRANULOCYTE (%) 1.1 % (0.0-0.7); LYMPHOCYTE (%) 9.7 % (15-42); LYMPHOCYTE COUNT 1.5 K/uL (1.0-2.8); MCH 30.1 PG (29.0-34.0); MCHC 35.7 G/DL (30.0-36.0); MCV 84.3 FL (86-99); MONOCYTE (%) 8.4 % (3-12); MONOCYTE COUNT 1.3 K/uL (0-0.8); NEUTROPHIL (%) 76.9 % (45-76); NEUTROPHIL COUNT 11.7 K/uL (1.8-6.4); PLATELET COUNT 146 K/uL (156-360); RBC DIS.WIDTH-CV 13.6 % (11.8-14.6); RED BLOOD COUNT 4.85 M/uL (4.00-5.50); WHITE BLOOD COUNT 15.2 K/uL (4.1-10.2)
[2017-08-17 14:42] LABS: ALBUMIN 3.3 g/dL (3.2-4.8); CHLORIDE 93 mEq/L (99-109); POTASSIUM 3.7 mEq/L (3.7-5.4); SODIUM 133 mEq/L (136-147)
[2017-08-17 14:45] LABS: GLUCOSE 214 mg/dL (70-99); TOTAL PROTEIN 5.2 g/dL (6.4-8.3)
[2017-08-17 14:47] LABS: TOTAL BILIRUBIN 1.6 mg/dL (0.0-1.0)
[2017-08-17 14:48] LABS: ALKALINE PHOSPHATASE 119 IU/L (3-129); CREATININE 1.3 mg/dL (0.6-1.3); GFR ESTIMATE (CALCULATED) 57 mL/min/ (58.99-99999)
[2017-08-17 14:49] LABS: UREA NITROGEN (BUN) 22 mg/dL (9-23)
[2017-08-17 14:50] LABS: AST (GOT) 61 IU/L (2-34)
[2017-08-17 14:51] LABS: ALT (GPT) 221 IU/L (3-49)
[2017-08-17 14:53] LABS: TROP-I INTERPRETATION NEGATIVE; TROPONIN-I 0.02 ng/mL (0.0-0.30)
[2017-08-17 15:00] VITALS: BP 128/63
[2017-08-17 15:07] LABS: APPEARANCE CLEAR ((CLEAR)); BILIRUBIN NEGATIVE; BLOOD SMALL; COLOR STRAW ((YELLOW)); GLUCOSE (STRIP) 150; KETONES NEGATIVE; LEUKOCYTES NEGATIVE; NITRITE NEGATIVE; PROTEIN (STRIP) NEGATIVE; SPECIFIC GRAVITY 1.006 (1.000-1.030); UROBILINOGEN 0.2 MG/DL (0.2-1.0)
[2017-08-17 15:09] LABS: CARBON DIOXIDE (BICARBONATE) 31.7 MEQ/L (20-31)
[2017-08-17 15:11] LABS: BACTERIA RARE /HPF; EPITHELIAL CELLS NONE SEEN /HPF; MUCUS NONE SEEN /LPF; RED BLOOD CELLS 0-5 /HPF (0-5); UCUL ADDED? NO; WHITE BLOOD CELLS 0-5 /HPF (0-5)
[2017-08-17 17:11] LABS: TROP-I INTERPRETATION NEGATIVE; TROPONIN-I 0.02 ng/mL (0.0-0.30)
== END 2017-08-17 20:59 | disposition home or self-care (01) ==
LOC: EME 13:43
PROVIDERS: Emergency Medicine
DX: J44.1 Chronic obstructive pulmonary disease with (acute) exacerbation (principal); F91.9 Conduct disorder, unspecified; R41.0 Disorientation, unspecified; I12.9 Hypertensive chronic kidney disease with stage 1 through stage 4 chronic kidney disease, or unspecified chronic kidney disease; E11.22 Type 2 diabetes mellitus with diabetic chronic kidney disease; N18.9 Chronic kidney disease, unspecified; E78.5 Hyperlipidemia, unspecified; F32.9 Major depressive disorder, single episode, unspecified; F02.80 Dementia in other diseases classified elsewhere, unspecified severity, without behavioral disturbance, psychotic disturbance, mood disturbance, and anxiety; Z87.01 Personal history of pneumonia (recurrent); Z79.4 Long term (current) use of insulin; Z79.82 Long term (current) use of aspirin; Z91.14 Patient's other noncompliance with medication regimen; Z87.891 Personal history of nicotine dependence
CPT/HCPCS: 70450; 71046; 80053; 81003; 82803; 82948; 83880; 84484; 85025; 90839; 93005; 94640; 99281; 99284

== ENCOUNTER 2017-08-20 22:55 | Inpatient (IN) | payer OTHER ==
[~2017-08-20] VITALS: Ht 154.9 cm; Wt 59.1 kg
[2017-08-20 23:32] LABS: HEMATOCRIT 38.8 % (38.0-50.0); HEMOGLOBIN 13.7 G/DL (12.5-16.6); MCH 30.2 PG (29.0-34.0); MCHC 35.3 G/DL (30.0-36.0); MCV 85.7 FL (86-99); PLATELET COUNT 147 K/uL (156-360); RBC DIS.WIDTH-CV 13.9 % (11.8-14.6); RBC DIS.WIDTH-SD 43.2 % (39-53); RED BLOOD COUNT 4.53 M/uL (4.00-5.50); WHITE BLOOD COUNT 14.3 K/uL (4.1-10.2)
[2017-08-20 23:45] LABS: CHLORIDE 96 mEq/L (99-109); SODIUM 137 mEq/L (136-147)
[2017-08-20 23:47] LABS: GLUCOSE 210 mg/dL (70-99)
[2017-08-20 23:50] LABS: SERUM ETHYL ALCOHOL < 10 mg/dL
[2017-08-20 23:51] LABS: CREATININE 1.4 mg/dL (0.6-1.3); GFR ESTIMATE (CALCULATED) 52 mL/min/ (58.99-99999)
[2017-08-20 23:52] LABS: UREA NITROGEN (BUN) 14 mg/dL (9-23)
[2017-08-21 06:01] VITALS: BP 107/60
[2017-08-21 07:50] VITALS: BP 102/54
[2017-08-21 12:07] VITALS: BP 99/58
[2017-08-21] MEDS ORDERED: COZAAR50 MG PO (14:10)
[2017-08-21] MEDS ORDERED: PRILOSEC10 MG PO (14:12)
[2017-08-21] MEDS ORDERED: LOVAZA1 GM PO (14:12)
[2017-08-21 16:43] VITALS: BP 99/56
[2017-08-21 19:56] VITALS: BP 115/63
[2017-08-21 23:38] VITALS: BP 125/75
[2017-08-22 03:57] VITALS: BP 122/62
[2017-08-22 05:59] LABS: BASOPHIL (%) 0.3 % (0-1); EOSINOPHIL (%) 0.3 % (0-5); HEMATOCRIT 40.4 % (38.0-50.0); HEMOGLOBIN 13.6 G/DL (12.5-16.6); LYMPHOCYTE (%) 9.9 % (15-42); LYMPHOCYTE COUNT 0.6 K/uL (1.0-2.8); MCH 29.2 PG (29.0-34.0); MCHC 33.7 G/DL (30.0-36.0); MCV 86.7 FL (86-99); MONOCYTE (%) 1.4 % (3-12); MONOCYTE COUNT 0.1 K/uL (0-0.8); NEUTROPHIL (%) 87.1 % (45-76); PLATELET COUNT 147 K/uL (156-360); RBC DIS.WIDTH-CV 13.8 % (11.8-14.6); RBC DIS.WIDTH-SD 43.4 % (39-53); RED BLOOD COUNT 4.66 M/uL (4.00-5.50); WHITE BLOOD COUNT 5.7 K/uL (4.1-10.2)
[2017-08-22 06:20] LABS: CHLORIDE 98 MEQ/L (99-109); CREATININE 1.3 MG/DL (0.6-1.3); GFR ESTIMATE (CALCULATED) 57 mL/min/ (58.99-99999); GLUCOSE 262 mg/dL (70-99); SODIUM 136 MEQ/L (136-147); UREA NITROGEN (BUN) 16 mg/dL (9-23)
[2017-08-22 08:05] VITALS: BP 141/90
[2017-08-22 11:47] VITALS: BP 124/57
[2017-08-22 15:49] VITALS: BP 118/57
[2017-08-22 19:05] LABS: CHLORIDE 93 MEQ/L (99-109); POTASSIUM 4.5 MEQ/L (3.7-5.4)
[2017-08-22 19:19] LABS: CREATININE 1.5 MG/DL (0.6-1.3); GFR ESTIMATE (CALCULATED) 48 mL/min/ (58.99-99999)
[2017-08-22 19:21] LABS: GLUCOSE 404 mg/dL (70-99); SODIUM 129 MEQ/L (136-147); UREA NITROGEN (BUN) 25 mg/dL (9-23)
[2017-08-22 19:53] VITALS: BP 133/60
[2017-08-22 23:15] VITALS: BP 102/69
[2017-08-23] VITALS: BP 123/63
[2017-08-23 03:57] VITALS: BP 145/61
[2017-08-23 05:58] LABS: BASOPHIL (%) 0.1 % (0-1); EOSINOPHIL (%) 0.1 % (0-5); HEMATOCRIT 38.7 % (38.0-50.0); HEMOGLOBIN 13.3 G/DL (12.5-16.6); IMMATURE GRANULOCYTE (%) 0.6 % (0.0-0.7); LYMPHOCYTE (%) 9.3 % (15-42); LYMPHOCYTE COUNT 1.3 K/uL (1.0-2.8); MCH 28.9 PG (29.0-34.0); MCHC 34.4 G/DL (30.0-36.0); MCV 83.9 FL (86-99); MONOCYTE (%) 6.2 % (3-12); MONOCYTE COUNT 0.8 K/uL (0-0.8); NEUTROPHIL (%) 83.7 % (45-76); NEUTROPHIL COUNT 11.3 K/uL (1.8-6.4); PLATELET COUNT 167 K/uL (156-360); RBC DIS.WIDTH-CV 13.6 % (11.8-14.6); RBC DIS.WIDTH-SD 41.7 % (39-53); RED BLOOD COUNT 4.61 M/uL (4.00-5.50); WHITE BLOOD COUNT 13.5 K/uL (4.1-10.2)
[2017-08-23 07:39] VITALS: BP 123/60
[2017-08-23 08:39] LABS: FOLIC ACID (FOLATE) 10.3 NG/ML (5.0-22.0)
[2017-08-23 15:17] VITALS: BP 139/64
[2017-08-23 23:50] VITALS: BP 122/64
[2017-08-24 05:25] VITALS: BP 110/61
[2017-08-24 07:33] VITALS: BP 110/61
[2017-08-24] MEDS ORDERED: CEFDINIR300 MG PO (11:36)
[2017-08-24] MEDS ORDERED: AZITHROMYCIN500 M1 PO (11:37)
[2017-08-24 15:34] VITALS: BP 98/57
[2017-08-24] MEDS ORDERED: SEROQUEL12.5 MG PO (20:12)
[2017-08-24] MEDS ORDERED: NOVOLOG 10100 UNITS/ SC (20:13)
[2017-08-24] MEDS ORDERED: PROTONIX40 MG PO (20:14)
[2017-08-24] MEDS ORDERED: GLUCAGON HCL1 MG IM (20:14)
== END 2017-08-24 18:45 | DRG 196 ==
LOC: EME 22:55 → EDOF 08-21 03:39 → ENRESERV 08-21 03:41 → 3EAST 08-21 05:40 → CANRESERV 08-24 16:24 → ENRESERV 08-24 16:24 → 3EAST 08-24 18:45
PROVIDERS: Emergency Medicine; Hospitalist; Psychiatry & Neurology Psychiatry; Student in an Organized Health Care Education/Training Program
DX: J84.112 Idiopathic pulmonary fibrosis (principal); J67.9 Hypersensitivity pneumonitis due to unspecified organic dust; J96.21 Acute and chronic respiratory failure with hypoxia; J44.9 Chronic obstructive pulmonary disease, unspecified; F02.81 Dementia in other diseases classified elsewhere, unspecified severity, with behavioral disturbance; F23 Brief psychotic disorder; R45.850 Homicidal ideations; F41.9 Anxiety disorder, unspecified; G47.33 Obstructive sleep apnea (adult) (pediatric); Z99.81 Dependence on supplemental oxygen; E78.5 Hyperlipidemia, unspecified; I12.9 Hypertensive chronic kidney disease with stage 1 through stage 4 chronic kidney disease, or unspecified chronic kidney disease; E11.22 Type 2 diabetes mellitus with diabetic chronic kidney disease; N18.3 Chronic kidney disease, stage 3 (moderate); K21.9 Gastro-esophageal reflux disease without esophagitis; E78.00 Pure hypercholesterolemia, unspecified; Z87.442 Personal history of urinary calculi; Z87.891 Personal history of nicotine dependence; Z83.3 Family history of diabetes mellitus; Z82.49 Family history of ischemic heart disease and other diseases of the circulatory system
CPT/HCPCS: 70551; 71046; 80048; 80048 91; 80200; 81003; 82607; 82746; 82948; 84443; 85025; 85027; 87070; 87205; 87449; 87502; 94640; 94640 76; 94799; 99202; 99281; 99285; G0480; J0456; J0692; J1644; J2543; J3260; J7050; J7512

== ENCOUNTER 2017-08-24 16:55 | Inpatient (IN) | payer OTHER ==
[~2017-08-24] VITALS: Ht 154.9 cm; Wt 56.0 kg
[~2017-08-24 16:55] MED LIST changes: +AZITHROMYCIN500 M1 PO; +COZAAR50 MG PO
[2017-08-24 19:00] VITALS: BP 121/56
[2017-08-24] MEDS ORDERED: SEROQUEL12.5 MG PO (20:12)
[2017-08-24] MEDS ORDERED: NOVOLOG 10100 UNITS/ SC (20:13)
[2017-08-24] MEDS ORDERED: GLUCAGON HCL1 MG IM (20:14)
[2017-08-24] MEDS ORDERED: PROTONIX40 MG PO (20:14)
[2017-08-25 07:50] VITALS: BP 108/77
[2017-08-25 15:20] VITALS: BP 90/55
[2017-08-26 07:41] VITALS: BP 118/70
[2017-08-26 14:09] LABS: BASE EXCESS 1.4 mEq/L (-3 to +3); BICARBONATE 26.6 mEq/L (22-26); CARBOXY HGB 2.4 % (0-5); METHEMOGLOBIN 1.4 % (0-1.5); PO2 65 mm Hg (80-100)
[2017-08-26 14:10] LABS: COMMENTS - BLOOD GASES +C; DEVICE NC; O2 FLOW 3 L/MIN; PCO2 43 mm Hg (35-45); SITE RB; TOTAL RESP RATE 24 resp/min
[2017-08-26 15:45] VITALS: BP 92/55
[2017-08-27 08:09] VITALS: BP 119/59
[2017-08-27 16:17] VITALS: BP 101/55
[2017-08-28 07:56] VITALS: BP 98/51
[2017-08-28 17:05] VITALS: BP 103/55
[2017-08-29 07:49] VITALS: BP 116/56
[2017-08-29 09:17] LABS: BASOPHIL (%) 0.6 % (0-1); EOSINOPHIL (%) 4.7 % (0-5); EOSINOPHIL COUNT 0.3 K/uL (0-0.3); HEMATOCRIT 38.6 % (38.0-50.0); HEMOGLOBIN 13.1 G/DL (12.5-16.6); IMMATURE GRANULOCYTE (%) 0.7 % (0.0-0.7); LYMPHOCYTE (%) 27.1 % (15-42); MCH 29.4 PG (29.0-34.0); MCHC 33.9 G/DL (30.0-36.0); MCV 86.5 FL (86-99); MONOCYTE (%) 7.4 % (3-12); MONOCYTE COUNT 0.5 K/uL (0-0.8); NEUTROPHIL (%) 59.5 % (45-76); NEUTROPHIL COUNT 4.3 K/uL (1.8-6.4); PLATELET COUNT 122 K/uL (156-360); RBC DIS.WIDTH-CV 14.4 % (11.8-14.6); RBC DIS.WIDTH-SD 45.3 % (39-53); RED BLOOD COUNT 4.46 M/uL (4.00-5.50); WHITE BLOOD COUNT 7.3 K/uL (4.1-10.2)
[2017-08-29 09:24] LABS: CHLORIDE 100 MEQ/L (99-109); POTASSIUM 4.2 MEQ/L (3.7-5.4); SODIUM 135 MEQ/L (136-147)
[2017-08-29 09:30] LABS: CREATININE 1.6 MG/DL (0.6-1.3); GFR ESTIMATE (CALCULATED) 45 mL/min/ (58.99-99999); GLUCOSE 73 mg/dL (70-99); UREA NITROGEN (BUN) 41 mg/dL (9-23)
[2017-08-29 17:09] VITALS: BP 109/58
[2017-08-30 08:05] VITALS: BP 115/69
[2017-08-30 16:11] VITALS: BP 124/60
[2017-08-31 07:56] VITALS: BP 137/58
[2017-08-31 16:30] VITALS: BP 97/55
[2017-09-01 09:29] VITALS: BP 122/55
[2017-09-01 16:57] VITALS: BP 90/51
[2017-09-01 19:56] LABS: ALBUMIN 3.5 G/DL (3.2-4.8); ALKALINE PHOSPHATASE 125 IU/L (3-129); ALT (GPT) 28 IU/L (3-49); AST (GOT) 30 IU/L (2-34); CHLORIDE 103 MEQ/L (99-109); CREATININE 1.8 MG/DL (0.6-1.3); GFR ESTIMATE (CALCULATED) 39 mL/min/ (58.99-99999); GLUCOSE 116 mg/dL (70-99); POTASSIUM 4.5 MEQ/L (3.7-5.4); SODIUM 141 MEQ/L (136-147); TOTAL BILIRUBIN 0.8 MG/DL (0.0-1.0); TOTAL PROTEIN 5.5 G/DL (6.4-8.3); UREA NITROGEN (BUN) 31 mg/dL (9-23)
[2017-09-02 09:26] VITALS: BP 106/56
[2017-09-03 08:00] VITALS: BP 121/57
[2017-09-03 16:22] VITALS: BP 114/56
[2017-09-04 07:42] VITALS: BP 103/51
[2017-09-04 15:28] VITALS: BP 103/51
[2017-09-05 07:52] VITALS: BP 111/53
[2017-09-05] MEDS ORDERED: RISPERIDONE1 MG PO (10:08)
[2017-09-05] MEDS ORDERED: DIVALPROEX SOD250 MG PO (10:08)
== END 2017-09-05 13:15 | disposition home or self-care (01) | DRG 885 ==
LOC: 1WEST 16:55 → ENRESERV 16:56 → 1WEST 18:52
PROVIDERS: Internal Medicine; Psychiatry & Neurology Psychiatry
DX: F31.10 Bipolar disorder, current episode manic without psychotic features, unspecified (principal); F02.81 Dementia in other diseases classified elsewhere, unspecified severity, with behavioral disturbance; J84.9 Interstitial pulmonary disease, unspecified; F01.51 Vascular dementia, unspecified severity, with behavioral disturbance; F05 Delirium due to known physiological condition; F19.921 Other psychoactive substance use, unspecified with intoxication with delirium; F06.33 Mood disorder due to known physiological condition with manic features; G30.9 Alzheimer's disease, unspecified; G47.33 Obstructive sleep apnea (adult) (pediatric); E78.5 Hyperlipidemia, unspecified; J44.9 Chronic obstructive pulmonary disease, unspecified; N18.9 Chronic kidney disease, unspecified; E11.22 Type 2 diabetes mellitus with diabetic chronic kidney disease; I12.9 Hypertensive chronic kidney disease with stage 1 through stage 4 chronic kidney disease, or unspecified chronic kidney disease; R09.02 Hypoxemia; K21.9 Gastro-esophageal reflux disease without esophagitis; F24 Shared psychotic disorder; T38.0X5A Adverse effect of glucocorticoids and synthetic analogues, initial encounter; R32 Unspecified urinary incontinence; I67.2 Cerebral atherosclerosis; Z99.81 Dependence on supplemental oxygen; Z79.82 Long term (current) use of aspirin; Z79.51 Long term (current) use of inhaled steroids; Z87.442 Personal history of urinary calculi; Z79.4 Long term (current) use of insulin; Z88.6 Allergy status to analgesic agent; Z91.14 Patient's other noncompliance with medication regimen; Z87.891 Personal history of nicotine dependence; Z82.49 Family history of ischemic heart disease and other diseases of the circulatory system; Z83.3 Family history of diabetes mellitus
CPT/HCPCS: 36600; 70450; 71046; 80048; 80053; 80164; 82803; 82948; 85025; 93005; 94640; 94640 76; 94760; 94799; 97150 GO; 97166 GO; J1815